=== PATIENT | male | born 1980 ===

== ENCOUNTER 2018-11-16 10:11 | Day surgery (SDC) | payer OTHER ==
[2018-11-16] VITALS (7 sets, daily range): BP systolic 117–149; BP diastolic 76–95
[~2018-11-16] VITALS: Ht 175.3 cm; Wt 74.3 kg
[~2018-11-16 10:11] MED LIST: CAPS42.57; NAPR-1154
[2018-11-16] MEDS ORDERED: cefazolin/dext.iso 2gm/100ml 100 ML IV ONE (11:03)
[2018-11-16] MEDS ORDERED: ringers solution, lacted 1,000 ML IV SCH ×2 (12:11→12:15)
[2018-11-16] MEDS ORDERED: famotidine 20mg tablet PO ONE (12:15)
[2018-11-16] MEDS ORDERED: proCHLORperazine 10 MG/2 ml inj IV PRN (12:15)
[2018-11-16] MEDS ORDERED: meperidine/PF 25mg/ml syringe IV PRN ×3 (12:15)
[2018-11-16] MEDS ORDERED: ondansetron/PF 4mg/2ml inj IV PRN (12:15)
[2018-11-16] MEDS ORDERED: ceFAZolin 1GM/D5W- ADD-VANTAGE 50 ML IV ONE (12:15)
[2018-11-16] MEDS ORDERED: morphine 4 MG/ML inj SYRINge IV PRN ×2 (12:15)
[2018-11-16] MEDS ORDERED: ceFAZolin 1000mg inj IR ONE (12:44)
[2018-11-16] MEDS ORDERED: ceFAZolin 1000mg inj ONE (12:52)
[2018-11-16] MEDS ORDERED: fentaNYL/PF 50MCG/1 ML 2ML syringe ONE (13:30)
[2018-11-16] MEDS ORDERED: midazolam 2 mg/2 ml injection ONE (13:31)
[2018-11-16] MEDS ORDERED: LIDOcaine 2% (20mg/ml) 5ml vial ONE (13:31)
[2018-11-16] MEDS ORDERED: propofol inj 20 ML IV ONE (13:31)
[2018-11-16] MEDS ORDERED: ROPIVAcaine 0.5% (5mg/ml) 30ml vial ONE (13:42)
[2018-11-16] MEDS ORDERED: ketorolac trometh. 30mg/ml inj. ONE (15:00)
--- NOTE | 2018-11-16 15:10 | NUR ---
Received from OR via [facility], accompanied by Anesthesiologist DR VILLANUEVA and report given by Anesthesiologist. PT DROWSY, NO S/S OF DISTRESS/DISCOMFORT, LEFT HAND/WRIST IN SPLINT W/ EDUARD WRAP COVERING, CDI. Addendum: 11/16/18 at 1703 by Fatmata Manzano RN Amended: Links added.
== END 2018-11-16 16:10 ==
LOC: PAS 10:11 → EEVIPCON 15:30 → PAS 16:10
PROVIDERS: ATTEND Orthopaedic Surgery
DX: S62.617A Displaced fracture of proximal phalanx of left little finger, initial encounter for closed fracture (principal); X58.XXXA Exposure to other specified factors, initial encounter; Y93.89 Activity, other specified; Y92.89 Other specified places as the place of occurrence of the external cause; Y99.8 Other external cause status
CPT/HCPCS: 26735; C1713; J0690; J1885; J2001; J2250; J2704; J3010; J7120; A6449; A7000; J2795